=== PATIENT | male | born 1980 | race Hispanic/Latino ===

== ENCOUNTER 2024-08-29 09:08 | Emergency (ER) | payer OTHER, SELFPAY ==
[2024-08-29 09:20] VITALS: BP 170/104
--- NOTE | 2024-08-29 10:22 | ED.SKININJ ---
HPI-Injury
General
Chief Complaint: Bite
Source: patient
Exam Limitations: none
Time Seen by Provider: 08/29/24 09:49
Nursing documentation reviewed up to this point in time: agreed with
History of Present Illness-Injury
Initial Injury comments:
see MDM
Phy Exam
Physical Exam
Physical Exam:
GENERAL: Alert , in no apparent distress
CARDIAC: Regular rate and rhythm, no edema left side DP pulse 2+
LUNGS: Clear breath sounds bilaterally, no acute respiratory distress, no wheezes/rales/rhonchi
NEUROLOGICAL: Alert and oriented, no focal neuro deficits, CN intact, 5/5 strength, sensation intact
SKIN: Warm and dry, patient has about a half a centimeter puncture wound to the left lateral lower leg superior to the ankle joint with no bleeding or drainage
MUSCULOSKELETAL: Subcutaneous puncture wound above the ankle, full ankle range of motion, normal pulse, no soft tissue swelling, no streaking
PSYCH: Normal and appropriate interaction.
Course
Orders/Labs/Results
Orders:
Orders
08/29/24 10:08
Amoxicillin 875 mg/Clav 125 mg [Augmentin 875 mg/125 mg] 1 tablet PO NOW STA
Ibuprofen [Motrin] 600 mg PO NOW STA
Tetanus/Diphth/Acelpertussis [Adacel] 0.5 ml IM .ONCE ONE
Vital Signs
Initial and Last Documented VS:
Initial Vital Signs
Temp Pulse Resp BP Pulse Ox
36.6 C 75 16 170/104 100
08/29/24 09:20 08/29/24 09:20 08/29/24 09:20 08/29/24 09:20 08/29/24 09:20
Last Documented Vital Signs
Temp Pulse Resp BP Pulse Ox
36.6 C 75 16 170/104 100
08/29/24 09:20 08/29/24 09:20 08/29/24 09:20 08/29/24 09:20 08/29/24 09:20
MDM/Problems Addressed
Differential Diagnosis Includes:
see MDM
MDM/Problems Addressed:
Note:
CHIEF COMPLAINT(S)
Dog bite to the leg.
HISTORY OF PRESENT ILLNESS
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 The incident occurred while the patient was working at a homeowners residence, unprovoked, by a Korean Schuler which was
described as an older house pet, approximately 13 years of age. The patient noted the dog seemed to approach and bite suddenly despite prior indications from the homeowner to ignore the dog. The bite resulted in a puncture wound, The patient
indicated that the animal appeared to be a house pet, assumed vaccinated, though specific vaccination status was not confirmed during the encounter. Last tetanus vaccination was reported over 10 years ago.
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
SOCIAL DETERMINANTS AFFECTING HEALTH
The incident is work-related, being addressed under worker�s compensation. The patient experiences stress related to job duties and the incident.
ALLERGIES
No known allergies.
PHYSICAL EXAM
- Lower Extremity: Puncture wound noted on the leg with potential for bruising and swelling. Nursing notes reviewed and vital signs reviewed.
PLAN
1. Administer updated tetanus vaccination.
2. Prescribe Amoxicillin-Clavulanate (Augmentin) 875 mg/125 mg, to be taken twice daily for 10 days.
3. Wound care includes cleaning, dressing, and allowing the wound to heal by secondary intention to avoid trapping bacteria.
4. Advise the patient to elevate the leg to reduce swelling and inflammation.
5. Provide Ibuprofen for pain management as needed.
6. Instruct the patient to monitor for signs of infection such as increased redness, swelling, drainage, or pain, and to return if these symptoms develop.
7. Follow-up with work-related documentation and prescriptions to be directed to the patients designated workplace accommodation.
DIFFERENTIAL DIAGNOSIS
The Differential Diagnosis includes, in no particular order and is not limited to:
1. Animal bite wound
2. Cellulitis
3. Rabies exposure
4. Tetanus risk
5. Soft tissue infection
7. Laceration with potential for secondary infection
8. Traumatic bruise with potential for hematoma formation
*Pulse Oximetry
SaO2: 100
Oxygen Mode of Delivery: Room air
Patient hypoxic: no (100)
*Critical Care Note
Total Time (30-74mins, 75-104mins- exclusive of procedures): Not Applicable
ED Attending Note
-
Portions of this chart may have been created with voice recognition software.� Occasional wrong word or��sound alike� substitutions may have occurred due to the inherent limitations of voice recognition software.
Discharge Plan
Departure
Patient Disposition: Home (Routine Discharge)
Date of Disposition: 08/29/24
Time of Disposition: 10:16
Patient with high blood pressure during this ER visit?: Yes
Condition: Fair
Covid-19: Not Applicable
Discharge Problem:
Dog bite of left lower leg
Instructions: Animal Bites (DC), BLOOD PRESSURE
Prescriptions:
New
amoxicillin-pot clavulanate 875-125 mg tablet
1 tab PO BID Qty: 20 0RF
Referrals:
KAL,KERWIN [Other]
Activity Restrictions/Additional Instructions:
Keep the wound clean and dry. Wash with soap and water twice a day, apply Neosporin and a Band-Aid. Watch for signs of infection like redness, swelling, drainage, pain, fever etc. return for any concerns. Otherwise take Augmentin twice a day for
10 days to prevent infection. Follow-up with Workmen's Comp.
You were given a tetanus shot today ibuprofen every 8 hours with food for pain. Your blood pressure was elevated, make sure to have this rechecked.
Interventions
Interventions:
*Risk Screen - Suicide Last Done: 08/29/24 09:22
*Neglect/Abuse Screening Last Done: 08/29/24 09:22
Discharge Date and Time
Print Language: NORWEGIAN
[2024-08-29] MEDS: ADACEL 0.5 ML IM (10:29)
[2024-08-29] MEDS: AUGMENTIN 875 MG/125 MG 1 TABLET PO (10:29)
[2024-08-29] MEDS: MOTRIN 600 MG PO (10:29)
[2024-08-29 10:35] VITALS: BP 165/113
== END 2024-08-29 10:45 | disposition home or self-care (01) ==
LOC: EMR 09:08
PROVIDERS: EMERGENCY PHYSICIAN Emergency Medicine
DX: S81.852A Open bite, left lower leg, initial encounter (principal); W54.0XXA Bitten by dog, initial encounter; Y92.009 Unspecified place in unspecified non-institutional (private) residence as the place of occurrence of the external cause; Z23 Encounter for immunization
CPT/HCPCS: 99282; 90471; 90715